=== PATIENT | male | born 1955 | race Caucasian/White ===

== ENCOUNTER 2019-10-31 04:05 | Emergency (ER) | payer OTHER ==
[~2019-10-31] VITALS: Ht 175.3 cm; Wt 75.7 kg
--- NOTE | 2019-10-31 04:12 | NUR ---
PT BIBFAMILY C/C CHEST PAIN RADIATING TO BACK AND FLU LIKE SYMPTOMS X3DAYS. +SOB. AOX4. VSS. AMBULATORY. PT ON MONITOR IN BED 9 WITH FAMILY AT BEDSIDE. WILL CONTINUE TO MONITOR.
--- NOTE | 2019-10-31 04:15 | NUR ---
BLOOD DRAWN AND GIVEN TO PHLEB
--- NOTE | 2019-10-31 04:17 | NUR ---
TECH AT BEDSIDE FOR EKG
[2019-10-31] MEDS ORDERED: ONDANSETRON HCL/PF 4 MG/2 ML VIAL ONE (04:19)
[2019-10-31] MEDS ORDERED: ASPIRIN 81 MG TAB.CHEW ONE (04:19)
[2019-10-31] MEDS ORDERED: MORPHINE SULFATE INJ 4 MG/ML DISP.SYRIN ONE ×2 (04:19→06:03)
[2019-10-31 04:23] LABS: BASOPHILS % (AUTO) 0.7 % (0.0-2.0); EOSINOPHILS % (AUTO) 0.2 % (0.0-6.0); HEMATOCRIT 50 % (39-51); HEMOGLOBIN 16.5 g/dL (13.5-17.5); LYMPHOCYTES # (AUTO) 1.8 /CMM (0.8-4.8); MEAN CORPUSCULAR HGB CONC 33 g/dl (31.0-36.0); MEAN CORPUSCULAR VOLUME 81 fL (80-96); MONOCYTES # (AUTO) 0.5 /CMM (0.1-1.30); MONOCYTES % (AUTO) 8.1 % (2.0-12.0); NEUTROPHILS # (AUTO) 3.7 /CMM (1.8-8.9); PLATELET COUNT (AUTO) 127 /CMM (150-450); RED BLOOD CELL COUNT(AUTO) 6.23 MIL/uL (4.5-6.0); WHITE BLOOD COUNT (AUTO) 6.1 K/uL (4.3-11.0)
[2019-10-31 04:26] LABS: CALCIUM, SERUM 8.8 mg/dL (8.5-10.1); CARBON DIOXIDE 22 mmol/L (21-32); CHLORIDE 100 mmol/L (98-107); CREATININE 1.1 mg/dL (0.6-1.3); GLUCOSE 240 mg/dL (74-106); POTASSIUM 3.7 mmol/L (3.5-5.1); SODIUM SERUM 138 mmol/L (136-145); UREA NITROGEN, BLOOD 23 mg/dL (7-18)
--- NOTE | 2019-10-31 04:26 | NUR ---
RADIOLOGY AT BEDSIDE FOR XRAY
[2019-10-31] MEDS ORDERED: MORPHINE SULFATE INJ 2 MG/ML DISP.SYRIN IV ONE ×2 (04:30→06:30)
[2019-10-31] MEDS ORDERED: ASPIRIN 81 MG TAB.CHEW PO ONE (04:30)
[2019-10-31] MEDS ORDERED: ONDANSETRON HCL/PF 4 MG/2 ML VIAL IVP ONE (04:30)
[2019-10-31] MEDS ORDERED: IV NS 0.9% 500 ML BAG IV ONE (04:30)
[2019-10-31 04:38] LABS: B-TYPE NATRIURETIC PEPTIDE 24 PG/ML (0-125)
--- NOTE | 2019-10-31 08:42 | NUR ---
ammunition assembly i laborer at bedside for 2nd troponin
--- NOTE | 2019-10-31 09:22 | NUR ---
IV removed. Catheter intact and site benign. Pressure and 4x4 applied to site. No bleeding noted.Patient discharged to home in stable condition. Written and verbal after care instructions given. Patient verbalizes understanding of instruction.
[2019-10-31 09:32] VITALS: BP 134/81
== END 2019-10-31 09:33 | disposition home or self-care (01) ==
LOC: ER 04:08
DX: R07.89 Other chest pain (principal); I10 Essential (primary) hypertension; E11.9 Type 2 diabetes mellitus without complications; E78.5 Hyperlipidemia, unspecified
CPT/HCPCS: 36415; 71045; 80048; 83880; 84484 ×2; 85025; 93005 ×3; 96374; 96375; 96376; 99284; J2270 ×2; J2405; J7040